=== PATIENT | male | born 1995 | race Caucasian/White ===

== ENCOUNTER 2020-08-22 08:11 | Emergency (ER) | payer OTHER, BC ==
[2020-08-22 08:56] LABS: CHLORIDE,CL 102 mmol/L (98-107); SODIUM,NA 139 mmol/L (136-145)
[2020-08-22] MEDS ORDERED: Morphine 2 MG/ML SYRINGE IVPUSH ONE ×2 (09:27→10:28)
[2020-08-22] MEDS: Sodium Chloride 0.9% 10 ML Syringe FLUSH PRN ×2 (09:32→10:44)
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
== END 2020-08-22 10:58 ==
LOC: LL.ED 08:11
DX: M54.5 Low back pain (principal); V49.40XA Driver injured in collision with unspecified motor vehicles in traffic accident, initial encounter; Y92.410 Unspecified street and highway as the place of occurrence of the external cause
CPT/HCPCS: 71045; 72125; 72131; 72170; 80053; 81003; 85025; 96374; 96376; 99283; 99284-25; J2270

== ENCOUNTER 2023-10-14 08:39 | Emergency (ER) | payer OTHER | END 2023-10-14 09:46 | disposition home or self-care (01) | LOC: LL.ED 08:39 | DX: S93.402A Sprain of unspecified ligament of left ankle, initial encounter (principal); F17.210 Nicotine dependence, cigarettes, uncomplicated; Z79.899 Other long term (current) drug therapy; X50.9XXA Other and unspecified overexertion or strenuous movements or postures, initial encounter | CPT/HCPCS: 73610-LT; 99283 ==